=== PATIENT | male | born 1975 | race Caucasian/White ===

== ENCOUNTER 2020-10-01 01:17 | Emergency (ER) | payer MEDICAID, OTHER ==
[2020-10-01 01:33] VITALS: O2SAT 100
[2020-10-01] MEDS ORDERED: TETRACAINE 0.5% STERI-UNIT SOL OP ONE (01:51)
[2020-10-01] MEDS ORDERED: Fluor-I-Strip/Ful-Flo OP ONE ×2 (01:54→02:01)
[2020-10-01] MEDS ORDERED: Decadron 4 MG PO STA (02:00)
[2020-10-01] MEDS ORDERED: TETRACAINE 0.5% STERI-UNIT SOL OP STA (02:00)
--- NOTE | 2020-10-01 02:06 | ERPHSYRPT ---
- History of Present Illness Source: patient Exam Limitations: other (Poor historian) Patient Subjective Stated Complaint: pt c/o something in his eye Triage Nursing Assessment: pt c/o "something in my eye". I felt it go in my eye as I was tossing and turning in the bed. Pt states, "I got it out". They are doing construction in his home so he's unsure if it was a piece of drywall plaster, or what. Pts rt eye is red, edematous above and below eye and going under left under. Pt's nose is runny and stuffy. Pt states, "I had none of this until the item got into my eye". Physician History: 44 yo wm w R ocular pain since around midnight when he states that while he was in bed reading his bible, a piece of plaster flew into his R eye. He states that he developed acute coryza and R periorbital edema. Pt does not wear contact lenses or glasses. Vision is somewhat blurry in R eye. Timing/Duration: other (Midnight) Apparent Injury: no Associated Symptoms: pain, burning, eyelid swelling, foreign body sensation, blurred vision Visual Assistive Devices: None Allergies/Adverse Reactions: No Known Drug Allergies Allergy (Verified 10/01/20 01:43) Hx Tetanus, Diphtheria Vaccination/Date Given: No Hx Influenza Vaccination/Date Given: No Hx Pneumococcal Vaccination/Date Given: No Immunizations Up to Date: No Travel Risk - International Travel Have you traveled outside of the country in past 3 weeks: No - Coronavirus Screening Are you exhibiting any of the following symptoms?: No Close contact with a COVID-19 positive Pt in past 14-21 Days: No - Review of Systems Constitutional: No Symptoms Ears, Nose, & Throat: No Symptoms Respiratory: No Symptoms, Stridor Abdominal/Gastrointestinal: No Symptoms Genitourinary Symptoms: No Symptoms Musculoskeletal: No Symptoms Skin: No Symptoms Neurological: No Symptoms Psychological: No Symptoms Endocrine: No Symptoms, Excessive Sweating Immunological/Allergic: No Symptoms - Past Medical History Pertinent Past Medical History: Yes Neurological History: No Pertinent History ENT History: No Pertinent History Cardiac History: No Pertinent History Respiratory History: Asthma Endocrine Medical History: No Pertinent History Musculoskeletal History: No Pertinent History GI Medical History: No Pertinent History History: No Pertinent History Psycho-Social History: Attention Deficit Disorder Male Reproductive Disorders: No Pertinent History Other Medical History: scoliosis - DJD - Past Surgical History Past Surgical History: Yes Neuro Surgical History: No Pertinent History Cardiac: No Pertinent History Respiratory: No Pertinent History Gastrointestinal: Appendectomy Genitourinary: No Pertinent History Musculoskeletal: No Pertinent History Male Surgical History: No Pertinent History - Social History Smoking Status: Light tobacco smoker How long have you smoked: 25 yrs Exposure to second hand smoke: Yes Drug Use: none Patient Lives Alone: No Significant Family History: no pertinent family hx - Nursing Vital Signs Nursing Vital Signs: Initial Vital Signs Temperature 97.9 F 10/01/20 01:31 Pulse Rate 82 10/01/20 01:31 Respiratory Rate 18 10/01/20 01:31 Blood Pressure 159/102 10/01/20 01:31 O2 Sat by Pulse Oximetry 100 10/01/20 01:31 Pain Scale Pain Intensity 0 - Physical Exam Vision Acuity Degree Evaluation Phase: Uncorrected Vision Acuity Right Eye: 20/15 Vision Acuity Left Eye: 20/20 Eye Exam: right eye: eyelid inflammation (PERRLDC/EOMI/R eye anes w tetracaine/Exam wo evidence of FB/Fluorescein applied/UV exam wo evidence of abrasion), bilateral eye: EOMI Ears, Nose, Throat Exam: normal ENT inspection, TMs normal, pharynx normal, moist mucous membranes Neck Exam: normal inspection, non-tender, supple, full range of motion, No meningismus, No mass, No Brudzinski, No Kernig's Respiratory Exam: normal breath sounds, lungs clear, airway intact, No respiratory distress Cardiovascular Exam: regular rate/rhythm, normal heart sounds, No murmur Extremity Exam: normal inspection, normal range of motion Neurologic: alert, oriented x 3, cooperative, normal mood/affect, nml cerebellar function, nml station & gait, sensation nml, No motor deficits, No sensory deficit Skin Exam: normal color, warm, dry, No rash Lymphatic: No adenopathy SpO2 Interpretation: normal SpO2: 100 O2 Delivery: Room Air Procedures - Eye Procedure Tetracaine Drops Administered: Yes Eye FB Removal: other Remaining Material after FB Removal: none Progress: No FB or Corneal abrasion observed - Course Nursing assessment & vital signs reviewed: Yes Ordered Tests: Active Orders 24 hr Category Date Time Status Transfer Order Routine Transfer 10/01/20 Ordered Medication Summary Discontinued Medications Generic Name Dose Route Start Last Admin Trade Name Mike PRN Reason Stop Dose Admin Dexamethasone 10 mg 10/01/20 02:00 10/01/20 02:12 Decadron 4 Mg PO 10/01/20 02:01 10 mg ONCE STA Administration Diphenhydramine HCl 25 mg 10/01/20 02:32 10/01/20 02:34 Benadryl 25 Mg Capsule PO 10/01/20 02:33 25 mg STAT ONE Administration Diphenhydramine HCl Confirm 10/01/20 02:34 Benadryl 25 Mg Capsule Administered 10/01/20 02:35 Dose 25 mg .ROUTE .STK-MED ONE Epinephrine HCl 0.3 mg 10/01/20 02:39 10/01/20 02:42 Epinephrine 1mg/Ml Amp IM 10/01/20 02:40 0.3 mg STAT ONE Administration Epinephrine HCl Confirm 10/01/20 02:41 Epinephrine 1mg/Ml Amp Administered 10/01/20 02:42 Dose 1 mg .ROUTE .STK-MED ONE Fluorescein Sodium Confirm 10/01/20 01:54 Mgdwp-A-Tyqzw/Ful-Soy Administered 10/01/20 01:55 Dose 1 mg OP .STK-MED ONE Fluorescein Sodium 1 mg 10/01/20 02:01 10/01/20 02:02 Wxvis-M-Csllh/Ful-Soy OP 10/01/20 02:02 1 mg STAT ONE Administration Tetracaine HCl Confirm 10/01/20 01:51 Tetracaine 0.5% Steri-Unit Kae Administered 10/01/20 01:52 Dose 4 ml OP .STK-MED ONE Tetracaine HCl 4 ml 10/01/20 02:00 10/01/20 02:02 Tetracaine 0.5% Steri-Unit Kae OP 10/01/20 02:01 4 ml STAT STA Administration - Progress Progress: improved Progress Note: 10/01/20 02:16 Pt has periorbital edema along w coryza wo evidence of FB/abrasion. 10mg po decadron given due to possible allergic reaction. Pt later developed a rash on arms, so most likely pt experiencing an allergic reaction. 25mg po Benadryl given. 10/01/20 02:33 10/01/20 02:51 Rash seemed to accelerate during stay, so 0.3 IM Epi given. 10/01/20 03:04 Symptoms improved after 0.3 IM Epi given Counseled pt/family regarding: need for follow-up - Departure Departure Disposition: Home Clinical Impression: Allergic reaction, Irritation of eyelid Condition: Stable Critical Care Time: No Referrals: DOCTOR,NO FAMILY [Primary Care Provider] - Instructions: Anaphylaxis (DC) Additional Instructions: Take decadron 4mg daily for 2 days Follow up with your family MD or eye doctor if condition worsens Do not rub eye Return to ER for increasing pain/swelling/redness/temperature greater than 100.5 Continue w benadryl 25mg every 6 hours as needed Prescriptions: Dexamethasone 4 mg [Decadron 4 MG] 4 mg PO DAILY 2 Days #2 tablet Epinephrine [Epipen] 0.3 mg IM DAILY PRN PRN #2 pens PRN Reason: Allergies
[2020-10-01] MEDS ORDERED: BENADRYL 25 MG CAPSULE PO ONE (02:32)
[2020-10-01] MEDS ORDERED: BENADRYL 25 MG CAPSULE ONE (02:34)
[2020-10-01] MEDS ORDERED: EPINEPHRINE 1MG/ML AMP IM ONE (02:39)
[2020-10-01] MEDS ORDERED: EPINEPHRINE 1MG/ML AMP ONE (02:41)
[2020-10-01 03:07] VITALS: BP 147/98; PULSE 80
== END 2020-10-01 03:15 | disposition home or self-care (01) ==
LOC: ED 01:17
DX: T78.49XA Other allergy, initial encounter (principal); H57.89 Other specified disorders of eye and adnexa
CPT/HCPCS: 96372; 99284; J0171; A9270-GY

== ENCOUNTER 2022-03-30 15:28 | Emergency (ER) | payer OTHER ==
[2022-03-30 15:43] VITALS: PULSE 83; O2SAT 98
[2022-03-30] MEDS ORDERED: KEFLEX 500 MG PO ONE (16:21)
[2022-03-30] MEDS ORDERED: MORPHINE SULFATE 4 MG INJ IM ONE (16:21)
[2022-03-30] MEDS ORDERED: BACIGUENT PACKET TP ONE (16:22)
[2022-03-30] MEDS ORDERED: BACIGUENT PACKET ONE (16:28)
[2022-03-30] MEDS ORDERED: KEFLEX 500 MG ONE (16:28)
[2022-03-30] MEDS ORDERED: MORPHINE SULFATE 4 MG INJ ONE ×2 (16:28→16:39)
[2022-03-30] MEDS ORDERED: TORAdol 30 mg Injection ONE (16:29)
[2022-03-30] MEDS ORDERED: TORAdol 30 mg Injection IM ONE (16:31)
[2022-03-30] MEDS ORDERED: MORPHINE SULFATE 4 MG INJ IV ONE (16:37)
[2022-03-30] MEDS ORDERED: Adacel Vial IM ONE ×2 (16:38→16:40)
--- NOTE | 2022-03-30 16:38 | ERPHSYRPT ---
- History of Present Illness Time Seen by Provider: 03/30/22 15:38 Source: patient Exam Limitations: no limitations Patient Subjective Stated Complaint: Pt's dog was in a dog fight and he managed to get his ankle wrapped around the dog cable and it got pulled tight around his left ankle causing injury Triage Nursing Assessment: Pt brought self to the ER, vitals wnl, rates pain as 8/10, unable to walk on foot, swelling and burn type marking, pulses normal, cap refill normal, doesn't appear to be in any distress Physician History: 46 years old presented in the ER with chief complaint of injury left ankle yesterday when he was trying to separate her dog fight and somehow the dog cable wrapped around his ankle, got pulled/got tight enough to cause localized burn. Is having moderate to severe sharp shooting pain radiating down to dorsum of foot and in the lower leg, more with ambulation and gradually increasing swelling making it difficult to walk normally but has to bear more weight on the left lateral side. Method of Injury: other Occurred: yesterday Quality: sharpness Severity of Pain-Max: severe Severity of Pain-Current: severe Lower Extremities Pain: ankle: left Modifying Factors: Improves With: immobilization. Worsens With: movement Associated Symptoms: unable to bear weight Allergies/Adverse Reactions: No Known Drug Allergies Allergy (Verified 03/30/22 15:43) Hx Tetanus, Diphtheria Vaccination/Date Given: No Hx Influenza Vaccination/Date Given: No Hx Pneumococcal Vaccination/Date Given: No Travel Risk - International Travel Have you traveled outside of the country in past 3 weeks: No - Coronavirus Screening Are you exhibiting any of the following symptoms?: No Close contact with a COVID-19 positive Pt in past 14-21 Days: No - Vaccine Status Have you recieved a Covid-19 vaccination: No - Review of Systems Constitutional: No Symptoms Eyes: No Symptoms Respiratory: No Symptoms Cardiac: No Symptoms Abdominal/Gastrointestinal: No Symptoms Genitourinary Symptoms: No Symptoms Musculoskeletal: Injury, Joint Redness, Joint Pain, Joint Swelling Skin: Skin Lesions Neurological: No Symptoms Psychological: No Symptoms Endocrine: No Symptoms Hematologic/Lymphatic: No Symptoms - Past Medical History Pertinent Past Medical History: Yes Neurological History: No Pertinent History ENT History: No Pertinent History Cardiac History: No Pertinent History Respiratory History: Asthma Endocrine Medical History: No Pertinent History Musculoskeletal History: No Pertinent History GI Medical History: No Pertinent History History: No Pertinent History Psycho-Social History: Attention Deficit Disorder Male Reproductive Disorders: No Pertinent History Other Medical History: scoliosis - DJD - Past Surgical History Past Surgical History: Yes Neuro Surgical History: No Pertinent History Cardiac: No Pertinent History Respiratory: No Pertinent History Gastrointestinal: Appendectomy Genitourinary: No Pertinent History Musculoskeletal: No Pertinent History Male Surgical History: No Pertinent History - Social History Smoking Status: Former smoker How long have you smoked: 25 yrs Exposure to second hand smoke: Yes Drug Use: none Patient Lives Alone: No Significant Family History: no pertinent family hx - Nursing Vital Signs Nursing Vital Signs: Initial Vital Signs Temperature 97.9 F 03/30/22 15:36 Pulse Rate 83 03/30/22 15:36 Blood Pressure 135/88 03/30/22 15:36 O2 Sat by Pulse Oximetry 98 03/30/22 15:36 Pain Scale Pain Intensity 8 - Physical Exam General Appearance: no apparent distress, alert Neck Exam: normal inspection, full range of motion Cardiovascular/Respiratory Exam: normal breath sounds, regular rate/rhythm Back Exam: normal inspection, normal range of motion Legs Exam: bilateral leg: non-tender, normal inspection, normal range of motion Knees Exam: bilateral knee: non-tender, normal inspection, normal range of motion, no evidence of injury Ankle Exam: right ankle: non-tender, normal inspection, normal range of motion, no evidence of injury, left ankle: abrasions/laceration (Cable michael with abrasion and surrounding erythema, warm and tender to touch.), bone tenderness, limited range of motion, pain, soft tissue tenderness, swelling Neuro/Tendon Exam: normal sensation, normal motor functions Mental Status Exam: alert, oriented x 3, cooperative Skin Exam: normal color SpO2 Interpretation: normal SpO2: 98 O2 Delivery: Room Air Ordered Tests: Active Orders 24 hr Category Date Time Status ANKLE (3 VIEWS) Stat Exams 03/30/22 15:55 Taken Medication Summary Discontinued Medications Generic Name Dose Route Start Last Admin Trade Name Freq PRN Reason Stop Dose Admin Bacitracin Zinc 0.9 each 03/30/22 16:22 03/30/22 16:30 Bacitracin Packet 1 Each Pckt TP 03/30/22 16:23 0.9 each STAT ONE Administration Bacitracin Zinc Confirm 03/30/22 16:28 Bacitracin Packet 1 Each Pckt Administered 03/30/22 16:29 Dose 1 each .ROUTE .STK-MED ONE Cephalexin HCl 500 mg 03/30/22 16:21 03/30/22 16:30 Cephalexin Mh500 Mg Capsule PO 03/30/22 16:22 500 mg STAT ONE Administration Cephalexin HCl Confirm 03/30/22 16:28 Cephalexin Mh500 Mg Capsule Administered 03/30/22 16:29 Dose 500 mg .ROUTE .STK-MED ONE Ketorolac Tromethamine 30 mg 03/30/22 16:31 03/30/22 16:32 Ketorolac Tromethamine 30 Mg/Ml Inj IM 03/30/22 16:32 30 mg STAT ONE Administration Ketorolac Tromethamine Confirm 03/30/22 16:29 Ketorolac Tromethamine 30 Mg/Ml Inj Administered 03/30/22 16:30 Dose 30 mg .ROUTE .STK-MED ONE Morphine Sulfate 4 mg 03/30/22 16:21 03/30/22 16:33 Morphine Sulfate 4 Mg/Ml Injection IM 03/30/22 16:22 Not Given STAT ONE Morphine Sulfate Confirm 03/30/22 16:28 Morphine Sulfate 4 Mg/Ml Injection Administered 03/30/22 16:29 Dose 4 mg .ROUTE .STK-MED ONE Morphine Sulfate 4 mg 03/30/22 16:37 Morphine Sulfate 4 Mg/Ml Injection IV 03/30/22 16:38 STAT ONE - Progress Progress: pain not gone completely Progress Note: 03/30/22 16:41 Given symptomatic treatment for pain. X-rays negative for fracture dislocation. Cleaned thoroughly and dressing applied. Started on antibiotics. Outpatient podiatry follow-up. Discussed signs symptoms of worsening needing return to ER which he seems understanding. Weightbearing as tolerated. Counseled pt/family regarding: diagnosis, need for follow-up, rad results - Departure Departure Disposition: Home Clinical Impression: Acute left ankle pain Condition: Stable Critical Care Time: No Referrals: DOCTOR,NO FAMILY [Primary Care Provider] - Follow up/PCP as directed МАРИНА SANTOS DPM [ACTIVE STAFF] - Follow up/PCP as directed (Tomorrow for reevaluation) Instructions: Ankle Sprain (DC), Cellulitis (Skin Infection), Adult ED Additional Instructions: Take pain medications as needed. Weightbearing only as tolerated. Follow-up with podiatry for reevaluation tomorrow. Return to ER for increasing pain swelling redness or if develop fever chills etc. Prescriptions: Tramadol HCl 50 mg [Ultram 50 mg] 50 mg PO Q6HPRN PRN 3 Days #12 tablet PRN Reason: Pain Cephalexin Mh 500 mg [Keflex 500 mg] 500 mg PO QID #28 cap
[2022-03-30 16:57] VITALS: BP 155/97
--- NOTE | 2022-03-30 19:24 | XRAY ---
Indication: Laceration. Comparison: None 3 view left ankle demonstrates mild anterior soft tissue swelling. No other bony, articular, or soft tissue abnormalities.
== END 2022-03-30 16:57 | disposition home or self-care (01) ==
LOC: ED 15:28
DX: M25.572 Pain in left ankle and joints of left foot (principal); S90.512A Abrasion, left ankle, initial encounter; W49.09XA Other specified item causing external constriction, initial encounter; Y93.K9 Activity, other involving animal care; Z79.891 Long term (current) use of opiate analgesic; Z28.310 Unvaccinated for COVID-19
CPT/HCPCS: 73610; 90471; 90715; 96372; 99284; J1885; J2270; A9270-GY

== ENCOUNTER 2022-06-29 12:58 | Emergency (ER) | payer OTHER ==
[2022-06-29 13:07] VITALS: BP 150/89; PULSE 60; O2SAT 98
--- NOTE | 2022-06-29 13:27 | ERPHSYRPT ---
- History of Present Illness Time Seen by Provider: 06/29/22 13:10 Source: patient Exam Limitations: no limitations Patient Subjective Stated Complaint: Pt states "I dropped a refrigerator door on my left big toe." Triage Nursing Assessment: Pt presented alert and oriented X 3, skin pwd. Pt ambulates with an upright steady gait, able to speak in clear full sentences pt left great toe bruised and extremely tender. 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 He comes in now with it throbbing and painful he has a large subungual hematoma. He wants to have it decompressed or trephine. Method of Injury: direct blow Occurred: this morning Quality: throbbing Severity of Pain-Max: moderate Severity of Pain-Current: moderate Lower Extremities Pain: 1st toe: left (Subungual hematoma) Modifying Factors: Improves With: movement Associated Symptoms: none Allergies/Adverse Reactions: No Known Drug Allergies Allergy (Verified 03/30/22 15:43) Hx Tetanus, Diphtheria Vaccination/Date Given: No Hx Influenza Vaccination/Date Given: No Hx Pneumococcal Vaccination/Date Given: No Immunizations Up to Date: Yes Travel Risk - International Travel Have you traveled outside of the country in past 3 weeks: No - Coronavirus Screening Are you exhibiting any of the following symptoms?: No Close contact with a COVID-19 positive Pt in past 14-21 Days: No - Vaccine Status Have you recieved a Covid-19 vaccination: No - Review of Systems Constitutional: No Fever, No Chills Eyes: No Symptoms Ears, Nose, & Throat: No Symptoms Respiratory: No Cough, No Dyspnea Cardiac: No Chest Pain, No Edema, No Syncope Abdominal/Gastrointestinal: No Abdominal Pain, No Nausea, No Vomiting, No Diarrhea Genitourinary Symptoms: No Dysuria Musculoskeletal: No Back Pain, No Neck Pain Skin: No Rash Neurological: No Dizziness, No Focal Weakness, No Sensory Changes Psychological: No Symptoms Endocrine: No Symptoms All Other Systems: Reviewed and Negative - Past Medical History Pertinent Past Medical History: Yes Neurological History: No Pertinent History ENT History: No Pertinent History Cardiac History: No Pertinent History Respiratory History: Asthma Endocrine Medical History: No Pertinent History Musculoskeletal History: No Pertinent History GI Medical History: No Pertinent History History: No Pertinent History Psycho-Social History: Attention Deficit Disorder Male Reproductive Disorders: No Pertinent History Other Medical History: scoliosis - DJD - Past Surgical History Past Surgical History: Yes Neuro Surgical History: No Pertinent History Cardiac: No Pertinent History Respiratory: No Pertinent History Gastrointestinal: Appendectomy Genitourinary: No Pertinent History Musculoskeletal: No Pertinent History Male Surgical History: No Pertinent History - Social History Smoking Status: Former smoker How long have you smoked: 25 yrs Exposure to second hand smoke: Yes Drug Use: none Patient Lives Alone: No Significant Family History: no pertinent family hx - Nursing Vital Signs Nursing Vital Signs: Initial Vital Signs Temperature 97.4 F 06/29/22 13:03 Pulse Rate 60 06/29/22 13:03 Respiratory Rate 22 06/29/22 13:03 Blood Pressure 150/89 06/29/22 13:03 O2 Sat by Pulse Oximetry 98 06/29/22 13:03 Pain Scale Pain Intensity 9 - Physical Exam General Appearance: mild distress, alert Eyes, Ears, Nose, Throat Exam: moist mucous membranes Neck Exam: non-tender, supple Cardiovascular/Respiratory Exam: chest non-tender, normal breath sounds, regular rate/rhythm, no respiratory distress Gastrointestinal/Abdominal Exam: non-tender, guarding Back Exam: normal inspection, No vertebral tenderness Foot Exam: left foot: bone tenderness, limited range of motion, nail injury (Large subungual hematoma left great toe), soft tissue tenderness Neuro/Tendon Exam: normal sensation, normal motor functions Mental Status Exam: alert, oriented x 3, cooperative Skin Exam: normal color, warm, dry SpO2 Interpretation: normal SpO2: 98 O2 Delivery: Room Air Procedures - Nail Trephination Time of Procedure: 13:23 Nail Trephination Location: Right great toenail Method of Drainage: nail cauterized Sterile Dressing Applied: Yes - Course Nursing assessment & vital signs reviewed: Yes - Radiology Exams Foot X-ray Interpretation: Negative Ordered Tests: Active Orders 24 hr Category Date Time Status FOOT (MINIMUM 3 VIEWS) Stat Exams 06/29/22 13:12 Completed - Progress Progress: improved - Departure Departure Disposition: Home Clinical Impression: Subungual hematoma of great toe of right foot Condition: Stable Critical Care Time: No Referrals: DOCTOR,NO FAMILY [Primary Care Provider] - Follow up/PCP as directed Instructions: Toe Injury (DC) Prescriptions: Hydrocodone/Acetaminophen [Hydrocodone-Acetamin 5-325 mg] 1 tab PO Q6HPRN PRN 3 Days #12 tablet MDD 4 PRN Reason: Pain
--- NOTE | 2022-06-29 13:47 | XRAY ---
Indication: Great toe pain following injury. Comparison: None 3 nonweightbearing views left foot demonstrates tiny well-circumscribed 1st IP joint heterotopic ossification and 1-2 mm soft tissue foreign body between 1st/2nd toes. No other bony, articular, or soft tissue abnormalities.
== END 2022-06-29 14:20 | disposition home or self-care (01) ==
LOC: ED 12:58
DX: S90.212A Contusion of left great toe with damage to nail, initial encounter (principal); W20.8XXA Other cause of strike by thrown, projected or falling object, initial encounter; M79.675 Pain in left toe(s); Z79.891 Long term (current) use of opiate analgesic; Z28.310 Unvaccinated for COVID-19
CPT/HCPCS: 11740; 73630; 99282